=== PATIENT | female | born 1970 | race Caucasian/White ===

== ENCOUNTER 2016-05-10 05:29 | Day surgery (SDC) | payer OTHER ==
[~2016-05-10] VITALS: Ht 162.6 cm; Wt 86.2 kg
[~2016-05-10 05:29] MED LIST: TYLENOL EXTRA500 MG PO
[2016-05-10 05:59] VITALS: BP 133/58
[2016-05-10 08:57] VITALS: BP 96/57
[2016-05-10 09:13] VITALS: BP 109/65
== END 2016-05-10 09:32 | disposition home or self-care (01) ==
LOC: SDC 05:29
PROC: 0U5 Female Reproductive System, Destruction (ICD-10-PCS; principal; 2016-05-10)
DX: N89.0 Mild vaginal dysplasia (principal); N81.10 Cystocele, unspecified; R53.83 Other fatigue
CPT/HCPCS: 88305; J0690; J1100; J2250; J2405; J3010

== ENCOUNTER 2016-08-25 23:42 | Emergency (ER) | payer OTHER ==
[~2016-08-25] VITALS: Ht 162.6 cm; Wt 87.6 kg
[2016-08-26 00:17] LABS: BASOPHIL COUNT 0.1 K/uL (0-0.1); EOSINOPHIL (%) 2.9 % (0-5); EOSINOPHIL COUNT 0.2 K/uL (0-0.3); HEMATOCRIT 39.5 % (36.0-46.0); IMMATURE GRANULOCYTE (%) 0.3 % (0.0-0.7); INSTRUMENT ABS NEUTROPHIL CT 3.4 K/uL; LYMPHOCYTE COUNT 2.7 K/uL (1.0-2.8); MCHC 33.9 G/DL (30.0-36.0); MCV 88.6 FL (83-99); MEAN PLAT.VOLUME 10.5 uM^3 (9.5-12.4); MONOCYTE (%) 7.9 % (3-12); MONOCYTE COUNT 0.6 K/uL (0-0.8); NEUTROPHIL (%) 48.8 % (45-76); NEUTROPHIL COUNT 3.4 K/uL (1.8-6.4); PLATELET COUNT 289 K/uL (156-360); RBC DIS.WIDTH-CV 11.6 % (11.8-14.6); RBC DIS.WIDTH-SD 37.5 % (39-53); RED BLOOD COUNT 4.46 M/uL (3.80-5.20); WHITE BLOOD COUNT 6.9 K/uL (4.1-10.2)
[2016-08-26 00:30] LABS: CHLORIDE 106 mEq/L (99-109); POTASSIUM 3.9 mEq/L (3.7-5.4); SODIUM 140 mEq/L (136-147)
[2016-08-26 00:32] LABS: GLUCOSE 96 mg/dL (70-99)
[2016-08-26 00:33] LABS: ANION GAP 10 MEQ/L (2-14)
[2016-08-26 00:34] LABS: TOTAL BILIRUBIN 0.7 mg/dL (0.0-1.0)
[2016-08-26 00:35] LABS: ALKALINE PHOSPHATASE 53 IU/L (3-129)
[2016-08-26 00:36] LABS: GFR ESTIMATE (CALCULATED) > 59 mL/min/
[2016-08-26 00:37] LABS: UREA NITROGEN (BUN) 13 mg/dL (9-23)
[2016-08-26 00:46] LABS: QUANTITATIVE HCG < 4.0 MIU/ML
[2016-08-26] MEDS ORDERED: FIORICET,ESG1 TABLET PO (03:36)
[2016-08-26] MEDS ORDERED: FLEXERIL10 MG PO (03:36)
[2016-08-26 03:46] VITALS: BP 125/91
== END 2016-08-26 04:13 | disposition home or self-care (01) ==
LOC: EME → EDBD 23:42 → EME 23:42
PROVIDERS: Emergency Medicine
DX: G43.909 Migraine, unspecified, not intractable, without status migrainosus (principal); M54.2 Cervicalgia
CPT/HCPCS: 70450; 70496; 70498; 80053; 84702; 85025; 99281; 99285; J0780; J1200; J3010; J7030